=== PATIENT | female | born 1955 | race Caucasian/White ===

== ENCOUNTER → 2016-06-14 | Outpatient (CLI) | payer OTHER, BC ==
[~2016-06-14] MED LIST: ZESTRIL 10MG10 MG PO; ZOCOR 10MG10 MG PO
== END ==
LOC: MC.RAD 06-07 09:40
DX: Z12.31 Encounter for screening mammogram for malignant neoplasm of breast (principal)

== ENCOUNTER 2018-02-19 07:49 | Emergency (ER) | payer BC ==
[~2018-02-19] VITALS: Ht 157.5 cm; Wt 77.3 kg
[2018-02-19 07:56] VITALS: BP 185/79; TEMP 97
[2018-02-19] MEDS ORDERED: NORCO 325 MG-51 TAB PO (08:35)
[2018-02-19] MEDS ORDERED: ZOFRAN ODT4 MG PO (08:35)
[2018-02-19 08:57] VITALS: PULSE 78
== END 2018-02-19 08:57 | disposition home or self-care (01) ==
LOC: COL.ER 07:49
DX: S62.102A Fracture of unspecified carpal bone, left wrist, initial encounter for closed fracture (principal); E78.5 Hyperlipidemia, unspecified; F17.210 Nicotine dependence, cigarettes, uncomplicated; I10 Essential (primary) hypertension; Z90.89 Acquired absence of other organs; Z98.51 Tubal ligation status; W01.0XXA Fall on same level from slipping, tripping and stumbling without subsequent striking against object, initial encounter
CPT/HCPCS: Q4050

== ENCOUNTER 2022-03-24 08:23 | Outpatient (RCR) | payer OTHER ==
[~2022-03-24 08:23] MED LIST changes: +NORCO 325 MG-51 TAB PO; +ZESTORETIC 25 M1 TAB PO; +ZOCOR 40MG40 MG PO; +ZOFRAN ODT4 MG PO
== END 2022-04-20 | disposition home or self-care (01) ==
LOC: WSOH
DX: S30.0XXD Contusion of lower back and pelvis, subsequent encounter (principal); I10 Essential (primary) hypertension; E78.00 Pure hypercholesterolemia, unspecified; Y99.0 Civilian activity done for income or pay

== ENCOUNTER → 2022-05-24 | Outpatient (CLI) | payer BC | LOC: MC.RAD 12:39 | DX: Z12.31 Encounter for screening mammogram for malignant neoplasm of breast (principal) ==